=== PATIENT | female | born 1955 | race Caucasian/White ===

== ENCOUNTER 2025-02-26 10:29 | Outpatient (CLI) | payer OTHER ==
[~2025-02-26 10:29] MED LIST: BACTROBAN OINT22 GM TP; CEFADROXIL500 MG PO; KETO10TA2 PO
== END 2025-02-26 10:34 | disposition home or self-care (01) ==
LOC: MRI 10:29
DX: M54.16 Radiculopathy, lumbar region (principal)
CPT/HCPCS: 72148